=== PATIENT | male | born 2000 | race African-American/Black ===

== ENCOUNTER 2024-06-23 06:14 | Observation (INO) ==
--- NOTE | 2024-06-23 06:59 | Emergency Department Note ---
HPI - Dental/Oral General Chief complaint: Dental/Oral Stated complaint: DENTAL PAIN Time Seen by Provider: 06/23/24 06:32 Source: patient Mode of arrival: walk-in Limitations: no limitations History of Present Illness HPI Narrative: 23 Y/O male presents to the ED with concerns for dental pain, x 7 days, right back tooth. Denies bleeding gums, or sore throat. Patient also reports tingling BLE and BUE ext MD Complaint: Reports tooth pain Teeth map:  2 1. 2. Duration: constant Severity: mild Relieving factors: Reports nothing Exacerbating factors: Reports nothing Context: Reports history of dental caries Associated symptoms: Reports gum swelling; Denies tongue swelling, pain with swallowing, ear pain or sore throat Treatment prior to arrival: Reports none Related Data Home Medications Medication Instructions Recorded Confirmed No Known Home Medication 01/10/24 06/23/24 Previous Rx's Medication Instructions Recorded potassium chloride 20 mEq 20 meq PO Q8H hypokalemia #30 tabs 04/02/24 tablet,extended release(part/cryst) Allergies Allergy/AdvReac Type Severity Reaction Status Date / Time No Known Drug Allergies Allergy Verified 06/23/24 06:48 Review of Systems 2 Narrative 23 Y/o male presents to the ED with c/o dental pain, right back, lower for 7 days. To the nurse the patient reports tingling BLE, BUE extremities, apparently the patient has HX of hypokalemia, he is taking OTC K+, 2 pills every morning and 2 pills every night for the last few days. Patient denies any N/V/D. Denies CP, pain with taking a deep breathe. Patient does report to me he feels as if his heart is skipping beats, but not racing. Constitutional Denies: fever or chills Ears, nose, mouth, and throat Denies: throat pain or neck pain Cardiovascular Denies: chest pain, palpitations or edema Respiratory Denies: shortness of breath, cough, wheezing or stridor Gastrointestinal Denies: abdominal pain, nausea or vomiting Genitourinary Denies: painful urination, urinary frequency or urinary urgency Musculoskeletal Denies: back pain, neck pain, extremity pain, extremity swelling, joint pain, limited range of motion, muscle cramps or muscle weakness Integumentary/Breast Denies: rash, itching or skin pain Neurological Denies: headache, numbness in extremities, weakness in extremities, vertigo or confusion Psychiatric Denies: anxiety or mood swings Endocrine Denies: excessive urination, excessive thirst, fatigue or cold intolerance [facility] Medical History (Updated 06/23/24 @ 07:00 by Aissatou Sanchez RN) No significant past medical history No active medical problems Social History Smoking status: never smoker Non-prescribed substance use: cannabis (any form) What is your current living situation: I presently have a place to live Problems where you live: no known problems Highest level of school completed/degree received: decline to answer Little interest or pleasure in doing things: not at all Feeling down, depressed, or hopeless: not at all Exam 2 Constitutional: normal general appearance, no apparent distress, no limitations and alert Vital Signs - 24 hr 06/23/24 06:20 06/23/24 06:20 06/23/24 07:00 Temperature 98.4 F Pulse Rate 68 60 Respiratory Rate 14 14 Blood Pressure 130/85 131/84 Pulse Oximetry 100 100 99 Oxygen Delivery [facility] Room Air Room Air Room Air 06/23/24 07:30 06/23/24 08:00 06/23/24 08:30 Temperature Pulse Rate 55 L 52 L 54 L Respiratory Rate 15 15 15 Blood Pressure 115/74 116/76 126/89 Pulse Oximetry 99 99 99 Oxygen Delivery [facility] Room Air Room Air Room Air 06/23/24 09:00 06/23/24 09:30 06/23/24 10:00 Temperature Pulse Rate 59 L 55 L 68 Respiratory Rate 15 15 15 Blood Pressure 129/80 129/80 133/95 Pulse Oximetry 99 99 99 Oxygen Delivery [facility] Room Air Room Air Room Air 06/23/24 10:30 06/23/24 11:30 Temperature Pulse Rate 65 62 Respiratory Rate 15 15 Blood Pressure 130/84 131/81 Pulse Oximetry 99 99 Oxygen Delivery [facility] Room Air Room Air HENMT: normocephalic and head/scalp atraumatic Eyes: PERRL, EOMs intact bilaterally and conjunctivae normal Chest: inspection of chest normal and palpation of chest normal Respiratory: breath sounds equal bilaterally and normal respiratory effort Cardiovascular: normal heart rate noted and regular rhythm noted Gastrointestinal: abdomen normal to inspection, abdomen soft to palpation and nondistended Neurology: well reactivator operator II-XII intact, deep tendon reflexes 2+ bilaterally, gait normal and speech normal Psychiatry: mental status grossly normal, oriented x3, cooperative and affect normal Course Course Hospital Course: This patient presented to the ED with c/o dental pain, with report of tingling in BUE and BLE for about 1 week. Patient has a HX of hypokalemia, rechecked BMP with K+ level at 2.1. repleted, and rechecked K + level at 2.6. I spoke with the patient about admission plans for overnight to replete K+. Patient denies any N/V/D. Reevaluation(s) Reevaluation #1: ED work up completed Magnesium 2.2 EKG noted SB HR 51, ST elevation TROP x 1 negative, plan to repeat in 3 hours order in Chest x-ray is negative for any acute cardiopulmonary disease process I called and spoke with Case management with regards to admission plans for hypokalemia, JACLYN to admit to OBS I called and spoke with JACLYN Garza to admit for hypokalemia I did inform the patient he will be admitted for OBS for K + repletion and lab recheck in the AM. patient agrees with admission plans. Time: 11:45 Vital Signs Vital signs: Vital Signs Temperature 98.4 F 06/23/24 06:20 Pulse Rate 68 06/23/24 06:20 Respiratory Rate 14 06/23/24 06:20 Blood Pressure 130/85 06/23/24 06:20 Pulse Oximetry 100 06/23/24 06:20 Oxygen Delivery Method Room Air 06/23/24 06:20 Temperature 98.4 F 06/23/24 06:20 Pulse Rate 51 L 06/23/24 12:08 Respiratory Rate 15 06/23/24 12:08 Blood Pressure 123/87 06/23/24 12:08 Pulse Oximetry 99 06/23/24 12:08 Oxygen Delivery Method Room Air 06/23/24 11:30 MDM - Dental/Oral Medical Records Attestation: I reviewed the patient's medical records. Lab Data Attestation: I reviewed the patient's lab results. Labs: Lab Results 06/23/24 06/23/24 Range/Units 07:10 10:48 WBC 6.6 (3.7-9.6) K/uL RBC 4.4 (4.40-5.80) M/uL Hgb 12.1 L (14.0-17.4) gm/dL Hct 35.8 L (41.3-50.1) % MCV 80.8 L (81.9-96.5) fl MCH 27.4 L (27.6-33.7) pg MCHC 33.9 (33.0-35.7) g/dl RDW 13.8 (11.0-14.8) % Plt Count 241 (142-355) K/uL MPV 8.0 (6.0-10.4) fl Gran % 56.2 (49.1-73.1) % Lymph % (Auto) 34.0 (17.6-39.05) % [place] % (Auto) 7.4 (4.5-10.7) % Eos % (Auto) 2.0 (0.0-4.0) % Baso % (Auto) 0.4 (0.0-1.3) Lymph # (Auto) 2.3 (0.8-2.9) [place] # (Auto) 0.5 (0.2-0.8) Eos # (Auto) 0.1 (0.0-0.3) Baso # (Auto) 0.0 (0.0-0.1) Absolute Gran (auto) 3.7 (2.0-6.2) Sodium 135 L (136-145) mmol/L Potassium 2.1 L* 2.6 L (3.6-5.2) mmol/L Chloride 93.0 L (98-107) mmol/L Carbon Dioxide 40 H (21-32) mmol/L Anion Gap 2.0 L (4-14) mEq/L BUN 9 (7-18) mg/dL Creatinine 1.0 (0.6-1.3) mg/dL Estimated GFR 109.1 (>59.9) Glucose 102 (70-110) mg/dL Calcium 8.8 (8.5-10.1) mg/dL Magnesium 2.2 (1.8-2.4) mg/dL Troponin I High Sens <4.00 L (4.0-60.4) ng/L Imaging Data Imaging ordered: Chest x-ray Attestation: I have reviewed the pertinent imaging results. Radiologist's impression: EXAM: XR CHEST 1V TECHNIQUE: Portable chest radiograph FINDINGS: Heart size and mediastinal contours are normal. Lungs are clear as are the pleural spaces. No free air or pneumothorax. No acute bony abnormality. IMPRESSION: No acute radiographic abnormalities of the chest THIS IS AN ELECTRONICALLY VERIFIED FINAL REPORT 06/23/2024 12:16 PM - Electronically signed by Liam Frias MD Discharge Plan Discharge Patient Disposition: Admitted As Observation Condition: Stable Clinical Impression: Hypokalemia Interventions: ED Discharge Assessment Last Done: 06/23/24 12:08 ED Discharge Vital Sign Last Done: 06/23/24 12:08 Emergency Department Charge Sheet Last Done: 06/23/24 12:08 Time of Disposition: 11:12 Discharge Date/Time: 06/23/24 12:20
[2024-06-23 07:21] LABS: Basophils%(Percent) Auto 0.4 (0.0-1.3); Eosinophils#(Absolute)Auto 0.1 (0.0-0.3); Granulocytes % - Auto 56.2 % (49.1-73.1); Granulocytes#(Absolute)- Auto 3.7 (2.0-6.2); Hematocrit 35.8 % (41.3-50.1); Mean Corpuscular Volume 80.8 fl (81.9-96.5); Monocytes #(Absolute)- Auto 0.5 (0.2-0.8); Monocytes %(Percent)- Auto 7.4 % (4.5-10.7); Platelet Count 241 K/uL (142-355); White Blood Count 6.6 K/uL (3.7-9.6)
[2024-06-23 07:29] LABS: Potassium 2.1 mmol/L (3.6-5.2)
[2024-06-23] MEDS ORDERED: POTASSIUM CHLORIDE 20 MEQ TAB.ER.PRT PO ONE (07:48)
[2024-06-23] MEDS ORDERED: 0.9 % SODIUM CHLORIDE 250 ML IV ONE (07:49)
[2024-06-23] MEDS: POTASSIUM CL 20 MEQ/100 ML SOL 40 MEQ/200 ML PIGGYBACK IV ONE ×2 (07:52→11:26)
[2024-06-23] MEDS: POTASSIUM CHLORIDE 10 MEQ CAPSULE.ER PO ONE (07:52)
[2024-06-23] MEDS ORDERED: IBUPROFEN 800 MG TABLET PO PRN (11:22)
[2024-06-23] MEDS ORDERED: POTASSIUM CL 20 MEQ/100 ML SOL 20 MEQ/100 ML PIGGYBACK IV ONE (12:17)
[2024-06-23 12:42] LABS: Specific Gravity Urine 1.005 (1.001-1.035); Urine Appearance CLEAR (CLEAR); Urine Blood NEGATIVE (NEG - TRACE); Urine Color YELLOW (STRAW/YELL.); Urine Urobilinogen Normal (NORMAL)
[2024-06-23] MEDS: 0.9 % SODIUM CHLORIDE 100ML 100 ML IV ONE (17:16)
[2024-06-23] MEDS: POTASSIUM CL 40 MEQ/30 ML 40 MEQ/30 ML LIQUID PO SCH (17:16)
[2024-06-23 18:50] LABS: Potassium 2.9 mmol/L (3.6-5.2)
[2024-06-24 05:37] LABS: Potassium 2.8 mmol/L (3.6-5.2)
[2024-06-24 08:19] VITALS: RESP 19
--- NOTE | 2024-06-24 08:29 | Event Note ---
Event Note Event Note: 2120 - Call received from Bri Sanchez RN, who reports pt glucose check is 55. Pt is awake and alert, currently eating and drinking. Order given to recheck glucose in 1hr and call to me. Recheck glucose = 95. Order given to continue to monitor as ordered.
[2024-06-24] MEDS: POTASSIUM CHLORIDE IN WATER 10 MEQ/100 ML PIGGYBACK IV ONE ×2 (12:49→15:35)
[2024-06-24] MEDS: 0.9 % SODIUM CHLORIDE 100ML 100 ML IV ONE (12:49)
[2024-06-24] MEDS: AMOXICILLIN/POTASSIUM CLAV 875/125 MG TABLET PO SCH (12:49)
--- NOTE | 2024-06-24 14:19 | History & Physical Report ---
H&P: HPI History of Present Illness Chief complaint: hypokalemia Narrative: 23 Y/O male presents to the ED with concerns for dental pain, x 7 days, right back tooth. Denies bleeding gums, or sore throat. Patient also reports tingling BLE and BUE ext. Admitted patient to med/surg for observation and treatment. Review of Systems Narrative 23 Y/o male presents to the ED with c/o dental pain, right back, lower for 7 days. To the nurse the patient reports tingling BLE, BUE extremities, apparently the patient has HX of hypokalemia, he is taking OTC K+, 2 pills every morning and 2 pills every night for the last few days. Patient denies any N/V/D. Denies CP, pain with taking a deep breathe. Patient does report to me he feels as if his heart is skipping beats, but not racing. Constitutional Denies: fever, chills or fatigue Ears, nose, mouth, and throat Denies: throat pain, neck pain or vertigo Cardiovascular Denies: chest pain, palpitations, edema or shortness of breath with exertion Respiratory Denies: shortness of breath, cough, wheezing or stridor Gastrointestinal Denies: abdominal pain, nausea or vomiting Genitourinary Denies: painful urination, urinary frequency or urinary urgency Musculoskeletal Denies: back pain, neck pain, extremity pain, extremity swelling, joint pain, limited range of motion, muscle cramps or muscle weakness Integumentary/Breast Denies: rash, itching or skin pain Neurological Denies: headache, numbness in extremities, weakness in extremities, vertigo or confusion Psychiatric Denies: anxiety or mood swings Endocrine Denies: excessive urination, excessive thirst, fatigue or cold intolerance Allergic/Immunologic Denies: wheezing PFSH PFS Medical History (Updated 06/23/24 @ 07:00 by Aissatou Sanchez RN) No significant past medical history No active medical problems Social History Smoking status: never smoker Non-prescribed substance use: cannabis (any form) What is your current living situation: I presently have a place to live Problems where you live: no known problems Highest level of school completed/degree received: high school Little interest or pleasure in doing things: not at all Feeling down, depressed, or hopeless: not at all Gender Identity: male Meds Home Medications and Allergies Home Medications Medication Instructions Recorded Confirmed Type No Known Home Medication 01/10/24 06/23/24 History potassium chloride 20 mEq 20 meq PO Q8H hypokalemia #30 tabs 04/02/24 06/23/24 Rx tablet,extended release(part/cryst) Allergies Allergy/AdvReac Type Severity Reaction Status Date / Time No Known Drug Allergies Allergy Verified 06/23/24 06:48 Exam Exam: Patient in low srinivasan's position upon entering room for exam. Two family members at bedside. Constitutional: normal general appearance, no apparent distress, no limitations and alert Vital Signs - 24 hr 06/23/24 15:51 06/23/24 18:18 06/23/24 23:00 Temperature 97.9 F 98.6 F 98.3 F Pulse Rate [Left C arotid] 73 62 60 Respiratory Rate 20 23 14 Blood Pressure [Ri ght Arm] 108/64 117/71 127/76 Pulse Oximetry 98 100 100 Oxygen Delivery Me thod Room Air Room Air Room Air 06/24/24 03:00 06/24/24 07:00 06/24/24 12:00 Temperature 98.4 F 98.2 F 98.1 F Pulse Rate [Left C arotid] 63 61 80 Respiratory Rate 23 19 19 Blood Pressure [Ri ght Arm] 119/68 120/74 129/74 Pulse Oximetry 100 99 98 Oxygen Delivery Me thod Room Air Room Air Room Air HENMT: normocephalic and head/scalp atraumatic Eyes: PERRL, EOMs intact bilaterally and conjunctivae normal Chest: inspection of chest normal and palpation of chest normal Respiratory: breath sounds equal bilaterally and normal respiratory effort Cardiovascular: normal heart rate noted and regular rhythm noted Gastrointestinal: abdomen normal to inspection, abdomen soft to palpation and nondistended Neurology: photoengraving finisher II-XII intact, deep tendon reflexes 2+ bilaterally, gait normal and speech normal Psychiatry: mental status grossly normal, oriented x3, cooperative and affect normal Assessment and Plan Assessment and Plan (1) Hypokalemia: Code(s): E87.6 - Hypokalemia Plan Potassium Chloride 40 meq PO 0600, 1800 Amoxicillin/Clavulanate Potassium 875 md PO BID Ibuprofen 800 mg PO Q8H PRN Results Labs Labs: CBC WBC 6.6 K/uL (3.7-9.6) 06/23/24 07:10 RBC 4.4 M/uL (4.40-5.80) 06/23/24 07:10 Hgb 12.1 gm/dL (14.0-17.4) L 06/23/24 07:10 Hct 35.8 % (41.3-50.1) L 06/23/24 07:10 MCV 80.8 fl (81.9-96.5) L 06/23/24 07:10 MCH 27.4 pg (27.6-33.7) L 06/23/24 07:10 MCHC 33.9 g/dl (33.0-35.7) 06/23/24 07:10 RDW 13.8 % (11.0-14.8) 06/23/24 07:10 Plt Count 241 K/uL (142-355) 06/23/24 07:10 MPV 8.0 fl (6.0-10.4) 06/23/24 07:10 Gran % 56.2 % (49.1-73.1) 06/23/24 07:10 Lymph % (Auto) 34.0 % (17.6-39.05) 06/23/24 07:10 [place] % (Auto) 7.4 % (4.5-10.7) 06/23/24 07:10 Eos % (Auto) 2.0 % (0.0-4.0) 06/23/24 07:10 Baso % (Auto) 0.4 (0.0-1.3) 06/23/24 07:10 Lymph # (Auto) 2.3 (0.8-2.9) 06/23/24 07:10 [place] # (Auto) 0.5 (0.2-0.8) 06/23/24 07:10 Eos # (Auto) 0.1 (0.0-0.3) 06/23/24 07:10 Baso # (Auto) 0.0 (0.0-0.1) 06/23/24 07:10 Absolute Gran (auto) 3.7 (2.0-6.2) 06/23/24 07:10 BMP Sodium 141 mmol/L (136-145) 06/24/24 04:50 Potassium 2.8 mmol/L (3.6-5.2) L 06/24/24 04:50 Chloride 102.0 mmol/L (98-107) 06/24/24 04:50 Carbon Dioxide 37 mmol/L (21-32) H 06/24/24 04:50 Anion Gap 2.0 mEq/L (4-14) L 06/24/24 04:50 BUN 6 mg/dL (7-18) L 06/24/24 04:50 Creatinine 0.9 mg/dL (0.6-1.3) 06/24/24 04:50 Estimated GFR 123.8 (>59.9) 06/24/24 04:50 Glucose 103 mg/dL (70-110) 06/24/24 04:50 Calcium 8.7 mg/dL (8.5-10.1) 06/24/24 04:50 Magnesium 2.1 mg/dL (1.8-2.4) 06/23/24 18:25 Cardiac Enzymes Troponin I High Sens <4.00 ng/L (4.0-60.4) L 06/23/24 18:10 Urine Urine Color Yellow (STRAW/YELL.) 06/23/24 11:29 Urine Appearance Clear (CLEAR) 06/23/24 11:29 Ur Specific [place] 1.005 (1.001-1.035) 06/23/24 11:29 Urine Protein 1+ (NEGATIVE) 06/23/24 11:29 Urine Glucose (UA) Normal (NORMAL) 06/23/24 11:29 Urine Ketones Negative (NEGATIVE) 06/23/24 11:29 Urine Occult Blood Negative (NEG - TRACE) 06/23/24 11:29 Urine Nitrite Negative (NEGATIVE) 06/23/24 11:29 Urine Bilirubin Negative (NEGATIVE) 06/23/24 11:29 Urine Urobilinogen Normal (NORMAL) 06/23/24 11:29 Ur Leukocyte Esterase Negative (NEGATIVE) 06/23/24 11:29 Imaging Imaging ordered: Chest x-ray Radiologist's impression: XR CHEST 1V HISTORY: SOBSOB; COMPARISON: None. TECHNIQUE: Portable chest radiograph FINDINGS: Heart size and mediastinal contours are normal. Lungs are clear as are the pleural spaces. No free air or pneumothorax. No acute bony abnormality. IMPRESSION: No acute radiographic abnormalities of the chest
[2024-06-24] MEDS ORDERED: POTASSIUM CHLORIDE IN WATER 10 MEQ/100 ML PIGGYBACK IV SCH (15:30)
[2024-06-24 16:08] VITALS: BP 170/90; PULSE 85; TEMP 98.5
[2024-06-24] MEDS ORDERED: POTASSIUM CHLORIDE 20 MEQ in 0.9 % SODIUM CHLORIDE 250 ML IV ONE (17:00)
[2024-06-24] MEDS ORDERED: SODIUM CHLORIDE 0.9% IV ONE (22:00)
[2024-06-24] MEDS ORDERED: POTASSIUM CHLORIDE IV ONE (22:00)
== END 2024-06-24 17:22 | disposition left against medical advice (07) ==
LOC: ED 06:14 → MS 06:14
PROVIDERS: ADMIT Family Medicine; ATTEND Family Medicine